=== PATIENT | female | born 1975 | race Caucasian/White ===

== ENCOUNTER 2025-07-21 08:58 | Outpatient (AMB) | payer MEDICAID, SELFPAY ==
--- NOTE | 2025-07-21 09:00 | AMB.GYNCLNOT ---
Vital Signs 07/21/25 09:10 Height 1.55 m Height Method Stated Weight 78.131 kg Weight Measurement Method Standing Scale BMI 32.5 BP 134/87 H Blood Pressure Source Automatic Cuff Blood Pressure Location Left Upper Arm Position Sitting Respiration 14 Pulse 66 Pulse Source Monitor Temp 97.9 F Temp Source Oral Pulse Oximetry (%) 96 Oxygen Delivery Method Room Air Allergies/Home Meds Allergies & Medications Allergies No Known Allergies Allergy (Verified 07/21/25 09:11) Intake Visit Data Collection New Patient or Established: New Patient not seen in past 3 years at [facility] (considered New) Reason for Visit:: REFERRAL LEIOMYOMA OF UERUS Consent obtained for Telemed Visit: Yes Seen by Clinical Staff ONLY (RN/MA): No Track Laying Machine Operator Required: Yes Track Laying Machine Operator's name/title: JOANA TURK Do You Feel Safe at Home: Yes Authorities Contacted: N/A PCP or OBGYN visit in last 3 months: Yes Hx Now: No Are you currently on any form of Control: No Pain Present Currently: No Pain Scale Used: Asher-Griffin/Numerical Pain scale:: 0 Smoking Status Smoking Status: Never smoker Immunizations Flu Vaccine in the Last 12 Months: Yes Flu Vaccine Exclusion Criteria: Already Received Fibreglass Laminator history Fibreglass Laminator History Menstrual regularity: regular Flow: normal Monthly: Yes How many days does period last: 8 Age at menarche: 16 Menopausal: Yes If menopausal, at what age did it occur: 48 Currently sexually active: Yes 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 1. Little interest or pleasure in doing things: not at all 2. Feeling down, depressed, or hopeless: not at all Total score: 0 PHQ-9 3. Trouble falling or staying asleep, or sleeping too much: Not at all 4. Feeling tired or having little energy: Not at all 5. Poor appetite or overeating: Not at all 6. Feeling bad about yourself - or that you are a failure or have let yourself or your family down: Not at all 7. Trouble concentrating on things, such as reading the newspaper or watching television: Not at all 8. Moving or speaking so slowly that other people could have noticed? - Or the opposite - being so fidgety or restless that you have been moving around a lot more than usual: not at all 9. Thoughts that you would be better off or of hurting yourself in some way: Not at all Total score: 0 Source: Developed by Drs. Alex Centeno, Janet Avitia, Meño [place] and colleagues, with an educational adolfo from [employer]. Depression screen completed yes Social History Living Situation History Marital Status: Lives With: Family Housing: House Tobacco History Smoking Status: Never smoker Second Hand Smoke Exposure: No Alcohol History Alcohol Intake: Current Alcohol Intake Frequency: holidays/special occasions only Domestic Abuse History Do You Feel Safe at Home: Yes History of Present Illness HPI Narrative Referral from PCP for leiomyoma of uterus, history of abnormal uterine bleeding, irregular periods for approximately 6 months Brittani Cortez is a postmenopausal female presenting on referral from her primary care provider for leiomyoma of the uterus with a history of abnormal uterine bleeding. The patient reports experiencing symptoms for approximately 6 months, though she notes having similar issues about 1-2 years ago. Previously, she was treated by another physician with medication (described as weekly tablets, likely Provera) for amenorrhea, which initially helped her menstruate for about 2 months. However, the current symptoms have returned and the fibroid appears to be growing larger despite previous treatment. The patient is currently in menopause and reports no active menstrual periods. She denies significant menopausal symptoms such as hot flushes. She does not report heavy bleeding, passing large clots, or symptoms of anemia at this time. Medical History: - Leiomyoma of uterus (uterine fibroids) - History of abnormal uterine bleeding - Hypercholesterolemia Medications: - Provera weekly - Cholesterol medication Objective Diagnostic Test Results and Labs: - Gonorrhea and Chlamydia (05-03-2025): Negative - CMP (05-03-2025): Within normal limits - Hemoglobin A1c (05-03-2025): 5.4 - Total cholesterol (05-03-2025): 247 mg/dL, elevated - LDL (05-03-2025): 159 mg/dL - Triglycerides (05-03-2025): 83 mg/dL - Transvaginal ultrasound (05-03-2025): Uterus 9.7 x 4.3 x 5.4 cm, moderately heterogeneous myometrium. Fibrous heterogeneous mass at anterior aspect 3.0 x 2.3 x 2.7 cm, obscures endometrium. Endometrium not visualized. Right ovary 3.2 cm with Doppler flow, normal parenchyma and follicles. Left ovary 2.2 cm with Doppler flow, normal parenchyma and follicles. No free fluid, normal bladder, no other findings. Exam General General Appearance: alert, in no apparent distress and healthy appearing Head Head exam: atraumatic Neck Neck exam: Present normal inspection and trachea midline Chest Chest inspection: Present normal inspection and symmetric chest wall rise External exam: Present normal external exam; Absent tenderness Neuro Neurological exam: Present oriented X3 Psych Psychiatric exam: Present normal affect and normal mood Office Procedures [facility] LOC & Office Proc's Nursing/Assessment Patient Status: Established Patient OB Clinic Nursing Assessment: Medication Reconciliation, Update PMH in EMR and Vital Signs OB Clinic Coordination of Care: Complex Care and Chronic Disease 1-5, Consent,records obtained, informed consent, Education Simp Pt/Fam, 1 Ins Authorization, Lab and Imaging orders, Results/Orders obtained and Staff clarify orders Established Patient Charge Established Patient Point Assignment: 120 Established Patient Point Charge: EP Level 4 (120-155) Assessment & Plan Diagnosis / Problem List (1) Pure hypercholesterolemia, unspecified: Status: Acute (2) Leiomyoma of uterus, unspecified: Status: Acute Plan Uterine leiomyoma Assessment: Patient has a 3-4 cm fibroid located at the anterior aspect of the uterus. The fibroid has grown despite previous treatment with weekly Provera approximately 1-2 years ago. Since the patient is postmenopausal, the fibroid is expected to shrink naturally over the next 3-5 years. The concerning finding is that the fibroid is obscuring the endometrium on transvaginal ultrasound, preventing visualization of the uterine lining. Plan: - Endometrial biopsy via hysteroscopy under anesthesia in hospital setting - Camera-guided biopsy to ensure accurate sampling of the right tissue - Same-day discharge procedure with minimal recovery time - Insurance authorization required prior to scheduling - If biopsy results are negative, monitor with annual ultrasound surveillance - Avoid hysterectomy as first-line treatment given postmenopausal status and absence of heavy bleeding or anemia Hypercholesterolemia Assessment: Patient has elevated cholesterol at 247 mg/dL with LDL of 159 mg/dL and triglycerides at 83 mg/dL. Patient is currently on cholesterol medication as prescribed by primary care physician. Plan: - Continue current cholesterol medication as prescribed by PCP
[2025-07-21 09:10] VITALS: BP 134/87; PULSE 66; RESP 14; TEMP 36.6; O2SAT 96; BMI 32.5
== END 2025-07-21 09:27 | disposition home or self-care (01) ==
LOC: HODSOBC 08:58
PROVIDERS: PCP Physician Assistant; Referring Provider Physician Assistant; Supervising Provider Obstetrics & Gynecology; Visit Provider Obstetrics & Gynecology
DX: D25.9 Leiomyoma of uterus, unspecified (principal); E78.00 Pure hypercholesterolemia, unspecified; Z78.0 Asymptomatic menopausal state
CPT/HCPCS: 99214; G0463